=== PATIENT | female | born 1995 | race African-American/Black ===

== ENCOUNTER 2018-04-12 23:37 | Emergency (ER) | payer OTHER ==
--- NOTE | 2018-04-13 00:50 | ED Physician Documentation ---
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 patient wears glasses but not contacts. eyes were flushed immediately for 15 minutes then she was driven to ED for evaluation. she has minimal burning L>R eye. denies visual changes. Review of Systems Eyes: reports: Irritation. 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 HEENT: Other Psych: None Musculoskeletal: None Derm: None - Past Surgical History Past Surgical History: No - Present Medications Home Medications: Ambulatory Orders Medication Instructions Recorded Confirmed No Known Home Medications [No 04/12/18 04/12/18 Known Home Medications] - Allergies Allergies/Adverse Reactions: Allergies Allergy/AdvReac Type Severity Reaction Status Date / Time No Known Drug Allergies Allergy Verified 04/12/18 23:46 - Social History Does the pt smoke?: Yes Smoking Status: Current every day smoker Does the pt drink ETOH?: No Does the pt have substance abuse?: No - Immunizations Immunizations are current?: Yes - POLST Patient has POLST: No PD ED PE NORMAL - Vitals Vital signs reviewed: Yes - General General: Alert and oriented X 3, No acute distress, Well developed/nourished - HEENT HEENT: PERRL, EOMI PD ED PE EXPANDED - Eyes Eyes: PERRL, EOMI, Normal eyelids, Nl conjunctiva/sclera. No: Eyelid swelling Results - Vitals Vitals: Oxygen O2 Source Room air PD MEDICAL DECISION MAKING - ED course Complexity details: considered differential, d/w patient ED course: patient brought msds sheet with her. (see triage note for this mumber). on this sheet, it lists pH as not available. The product [employer] In[employer] Specialist , and the listed chemical ingredients are butane, toluene, isopropyl alchohol, and 4-[id number]. nitrazine paper at bedside, the pH of her eye (sample from lower conjunctiva) is 7.0. given her minimal symptoms and the neutral pH of her conjunctiva, no further testing or treatment indicated at this time. left eye was pH tested, as patient indicates the majority of the exposure and the more prominent discomfort (albeit mild) involves left eye. - Sepsis Event Vital Signs: Oxygen O2 Source Room air Departure - Departure Disposition: 01 Home, Self Care Clinical Impression: Chemical exposure of eye Condition: Good Instructions: ED Chemical Conjunctivitis Discharge Date/Time: 04/13/18 01:15
[2018-04-13 01:14] VITALS: BP 117/81
== END 2018-04-13 01:15 | disposition home or self-care (01) ==
LOC: ED 23:37
DX: T65.891A Toxic effect of other specified substances, accidental (unintentional), initial encounter (principal); F17.200 Nicotine dependence, unspecified, uncomplicated; Y92.89 Other specified places as the place of occurrence of the external cause; Y99.1 Military activity
CPT/HCPCS: 99283

== ENCOUNTER 2019-07-07 11:19 | Emergency (ER) | payer OTHER ==
[2019-07-07 11:32] VITALS: BP 126/82
--- NOTE | 2019-07-07 13:23 | XRAY Report ---
Reason: knee pain Procedure Date: 07/07/2019 Accession Number: [id number] / [id number] Procedure: XR - Knee 4 View RT CPT Code: Final Report FULL RESULT: EXAM: RIGHT KNEE RADIOGRAPHY EXAM DATE: 07/07/2019 12:59 PM. CLINICAL HISTORY: Knee pain. COMPARISON: None. TECHNIQUE: 5 views. FINDINGS: Bones: No acute fracture identified. Joints: Normal. No effusion. No subluxation. Soft Tissues: No focal soft tissue swelling. IMPRESSION: No acute osseus abnormality. RADIA
--- NOTE | 2019-07-07 13:53 | ED Physician Documentation ---
History of Present Illness - Stated complaint Stated Complaint: RT KNEE PX - Chief complaint Chief Complaint: Ext Problem - History obtained from History obtained from: Patient - History of Present Illness Timing: Last night Pain level max: 5 Pain level now: 4 - Additonal information Additional information: states r knee patella felt like it moved medially and back laterally. pain today. states this has happened several times in the past. 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 : None HEENT: Other Psych: Anxiety, Bipolar disorder Musculoskeletal: None Derm: None - Past Surgical History Past Surgical History: No - Present Medications Home Medications: Ambulatory Orders Medication Instructions Recorded Confirmed Ibuprofen [Motrin] 800 mg PO Q8H PRN #30 tablet 07/07/19 - Allergies Allergies/Adverse Reactions: Allergies Allergy/AdvReac Type Severity Reaction Status Date / Time No Known Drug Allergies Allergy Verified 04/12/18 23:46 - Social History Does the pt smoke?: Yes Smoking Status: Current every day smoker Does the pt drink ETOH?: No Does the pt have substance abuse?: No - Immunizations Immunizations are current?: Yes - POLST Patient has POLST: No PD ED PE NORMAL - Vitals Vital signs reviewed: Yes - General General: Alert and oriented X 3, No acute distress - HEENT HEENT: Moist mucous membranes - Derm Derm: Warm and dry - Extremities Extremities: Other (R knee - diffuse TTP. no swelling. no effusion. ligaments intact. NVI. ) - Neuro Neuro: Alert and oriented X 3 - Psych Psych: Normal mood, Normal affect Results - Vitals Vitals: Vital Signs - 24 hr 07/07/19 11:30 Temperature 36.6 C Heart Rate 82 Respiratory 16 Rate Blood Pressure 126/82 H O2 Saturation 100 Oxygen O2 Source Room air - Rads (name of study) r knee xray Radiology: Prelim report reviewed, EMP read contemporaneously, See rad report (normal) PD MEDICAL DECISION MAKING - ED course Complexity details: reviewed results, considered differential, d/w patient ED course: 24-year-old female with what sounds like a patellar dislocation. Spontaneously reduced. We will place in a knee immobilizer for 2 to 3 days and [place] Neurovascularly intact. Ligaments intact. No joint effusion. Patient counseled regarding signs and symptoms for which I believe and urgent re-evaluation would be necessary. Patient with good understanding of and agreement to plan and is comfortable going home at this time This document was made in part using voice recognition software. While efforts are made to proofread this document, sound alike and grammatical errors may occur. Departure - Departure Disposition: 01 Home, Self Care Clinical Impression: Closed dislocation of right patella Qualifiers: Encounter type: initial encounter Qualified Code(s): S83.004A - Unspecified dislocation of right patella, initial encounter Condition: Good Instructions: ED Dislocation Patella Follow-Up: ZENA BLANKENSHIP MD [Primary Care Provider] - Within 1 week Prescriptions: Ibuprofen [Motrin] 800 mg PO Q8H PRN #30 tablet PRN Reason: PAIN &/OR FEVER Comments: Follow-up with your doctor for further care. Return if you worsen. Remove the knee immobilizer in 2 to 3 days. Do not wear it longer than this. Continue to gently stretch her knee after that. You may bear weight as tolerated.
[2019-07-07] MEDS ORDERED: IBUPROFEN 800 MG TABLET PO STA (13:54)
== END 2019-07-07 14:07 | disposition home or self-care (01) ==
LOC: ED 11:19
DX: S83.004A Unspecified dislocation of right patella, initial encounter (principal); X58.XXXA Exposure to other specified factors, initial encounter; F17.200 Nicotine dependence, unspecified, uncomplicated
CPT/HCPCS: 73564; 99283; A9270

== ENCOUNTER 2019-09-24 10:53 | Day surgery (SDC) | payer OTHER ==
[2019-09-24] MEDS ORDERED: LACTATED RINGERS 1,000 ML IV ONE (10:59)
[2019-09-24] MEDS ORDERED: CEFAZOLIN SODIUM IN 0.9 % NACL 2 GM/100 ML BAG IV ONE (11:18)
[2019-09-24 11:26] LABS: HCG UR QUAL NEGATIVE
--- NOTE | 2019-09-24 12:41 | ANESTHESIA ---
Pre-Anesthesia VS, & Labs - Diagnosis R knee cartilage lesion/patellar instability - Procedure R knee scope, chondroplasty, open medial patellofemoral ligament reconstruction Vital Signs: Temp Pulse Resp BP Pulse Ox 36.2 C L 71 12 124/75 98 09/24/19 10:59 09/24/19 10:59 09/24/19 10:59 09/24/19 10:59 09/24/19 10:59 Height 5 ft 4 in Weight (kg) 87.5 kg Body Mass Index 30.7 - NPO >8 hours - Is Patient ?: No - Lab Results Lab results reviewed: Yes Home Medications and Allergies Home Medications: Ambulatory Orders Sertraline HCl [Zoloft] 100 mg PO DAILY 09/20/19 Sertraline HCl [Zoloft] 100 mg PO DAILY 09/20/19 Allergies/Adverse Reactions: Allergies Allergy/AdvReac Type Severity Reaction Status Date / Time No Known Drug Allergies Allergy Verified 09/20/19 09:40 Anes History & Medical History - Anesthetic History Anesthesia Complications: reports: No previous complications Family history of Anesthesia Complications: Denies Family history of Malignant Hyperthermia: Denies - Medical History Cardiovascular: reports: None Pulmonary: reports: None Gastrointestinal: reports: None Urinary: reports: None Neuro: reports: None Musculoskeletal: reports: Other Endocrine/Autoimmune: reports: None Blood Disorders: reports: None Skin: reports: None Smoking Status: Current every day smoker Exam General: Alert, Oriented x3, Cooperative Dental: WNL Mouth Opening: Greater than 4 Fingerbreadths Neck Mobility: Normal Mallampati classification: II Thyromental Distance: greater than 6 cm Respiratory: Lungs clear, Normal breath sounds, No respiratory distress Cardiovascular: Regular rate Neurological: Normal speech Mental/Cognitive Status: Alert/Oriented X3, Normal for patient Cognitive Status: Within normal limits Plan Anesthesia Type: General, Femoral Block (possible for post-op pain) Regional Block: Per Surgeon's request for Post Op pain control Consent for Procedure(s) Verified and Reviewed: Yes Code Status: Attempt Resuscitation ASA classification: 2-Mild systemic disease Is this case an emergency?: No
[2019-09-24] MEDS ORDERED: EPINEPHrine 1 MG/ML AMP ONE (13:40)
[2019-09-24] MEDS ORDERED: BUPIVACAINE 0.25% PF 30 ML VIAL ONE ×2 (13:40→13:58)
[2019-09-24] MEDS ORDERED: BACITRACIN 50,000 UNIT VIAL ONE (13:52)
[2019-09-24] MEDS ORDERED: PROPOFOL 200 MG/20 ML VIAL IVP ONE (14:06)
[2019-09-24] MEDS ORDERED: ONDANSETRON 4 MG/2 ML VIAL IVP ONE (14:06)
[2019-09-24] MEDS ORDERED: DEXAMETHASONE 4 MG/ML VIAL IVP ONE (14:06)
[2019-09-24] MEDS ORDERED: KETOROLAC 30 MG/ML VIAL IVP ONE (14:06)
[2019-09-24] MEDS ORDERED: ACETAMINOPHEN 1,000 MG/100 ML 100 ML IV ONE (14:06)
[2019-09-24] MEDS ORDERED: fentaNYL 100 MCG/2 ML VIAL IVP ONE (14:06)
[2019-09-24] MEDS ORDERED: MIDAZOLAM 2 MG/2 ML VIAL IVP ONE (14:06)
[2019-09-24] MEDS ORDERED: LIDOCAINE-MPF 2% 5 ML VIAL IM ONE (14:06)
[2019-09-24] MEDS ORDERED: EPINEPHrine 1 MG/ML AMP IVP ONE (14:41)
[2019-09-24] MEDS ORDERED: BUPIVACAINE 0.25% PF 30 ML VIAL SUBQ ONE (14:43)
[2019-09-24] MEDS ORDERED: ONDANSETRON 4 MG/2 ML VIAL IVP PRN (16:55)
[2019-09-24] MEDS ORDERED: oxyCODONE 5 MG TABLET PO PRN (16:55)
[2019-09-24] MEDS ORDERED: ONDANSETRON 4 MG/2 ML VIAL ONE (17:04)
--- NOTE | 2019-09-24 17:13 | OPERATIVE REPORT ---
Operative Report - Other Other Information/Narrative: Date of Surgery: 24 September 2019 Pre-Op Diagnosis: Right knee cartilage lesions. Right knee patellar instability Procedure: Right knee arthroscopy with patella chondroplasty, medial femoral condyle chondroplasty, lateral tibial plateau chondroplasty. Open medial patellofemoral ligament reconstruction with allograft Postop Diagnosis: Same Primary Surgeon: Saw Mcdaniel Secondary Surgeon: Arden Scott Complications: None Tourniquet Time: 124 EBL: 5 cc Implants: Arthrex suture tack x2, Arthrex 7 mm interference screw. 7 mm tibialis anterior allograft Indication For Surgery: 24-year-old female who has multiple patellar dislocations as well as cartilage lesions on the underside of the patella. She does not trust the knee and is unable to participate in activities because of her instability. Her bony anatomy seemed appropriate for soft tissue reconstruction. The risks, benefits, and alternatives were discussed. Risks include pain, bleeding, infection, damage to nearby structures and cartilage, lack of symptom relief, need for further surgery, DVT, PE, stroke, and . Written consent was obtained. Examination Under Anesthesia: ROM equal to the contralateral side. Stable dial at 30 & 90 degrees. Stable to varus and valgus stressing at 0 & 30 degrees. Normal Flex. Normal Pivot shift. When moving the patella there is a mechanical sensation. Patella has 3-4 quadrants of mobility laterally compared to 2 on the contralateral side. Arthroscopic Findings: Loose bodies -none Synovium -normal Patella cartilage -large grade 2/3 lesion on the medial border and medial patellar facet. There is also a more contained partial-thickness lesion in the lateral patellar facet. The patella was sitting laterally and tracked to the lateral border of the trochlea Trochlear cartilage -normal Medial femoral condyle cartilage -small unstable cartilage lesion near the notch which was debrided Medial tibial plateau cartilage -normal Medial meniscus -normal Anterior cruciate ligament -normal Posterior cruciate ligament -normal Lateral femoral condyle cartilage -normal Lateral tibial plateau cartilage -5 to 10 mm wide by 20 mm long area of grade 2 cartilage lesion with some focal grade 3 Lateral meniscus -normal Procedure in Detail: The patient was met in the pre-operative hold area on the day of the procedure. The operative extremity was signed and questions were answered. The patient was brought to the operating room and a general anesthetic was administered. Supine position was used and bony prominences were padded. An examination under anesthesia was performed. Standard prepping and draping was performed. A time out confirmed patient identification, laterality, procedure, allergies, antibiotics, and images. An Esmarch was used to exsanguinate the limb and the tourniquet was elevated to 250 mmHg. A standard diagnostic arthroscopy of the knee was performed through anterolateral and anteromedial portal sites. The anteromedial portal was created under direct visualization after localizing with a spinal needle. The findings can be found above. I then proceeded to use a shaver to debride the medial femoral condyle, the lateral tibial plateau, and the underside of the patella of all unstable pieces of cartilage. Based on the appearance of the medial patellar facet I thought it still appropriate to perform a stabilizing procedure. Final images were taken and all arthroscopic fluid and instruments were removed from the knee. 3 cm incision was then made overlying and I dissected down to the fascia. I made a full-thickness cut down to the medial border of the patella ensuring to stay extracapsular. I then used fluoroscopy to identify the midpoint of the patella. A curette was used to abrade the bone for the superior 50%. I then placed a suture tack at the 50 yard line and then 1 1.5 cm superior to that ensuring to remain extra-articular and inside the bone. I then made a separate incision medially at the level of the medial epicondyle and dissected down to the medial epicondyle. I felt the sulcus between the epicondyle and the abductor tubercle and placed a Beath pin aiming anterior and proximal. X-ray was then used for an AP and a lateral confirming the reasonable position. I then passed the sutures over the pin and tested for isometry. I found that the sutures were getting too tight in flexion and so the pin was removed and placed slightly more distal and posterior. Isometry was then excellent from 0-90 and then after 90 it loosened slightly. Satisfied with this I got a repeat x-ray showing that I was well within 7 mm of shuttles point. I then drilled the Beath pin across the leg and out the lateral side and overdrilled this with 7mm to 40 mm of which was the size of the graft. I then placed the Glatt graft on the border of the patella and tied it to the suture tacks. I then tunneled extra-articular lead down to the femoral tunnel and the graft was passed into the other wound. I then measured 20 mm from the pin site and cut the graft at that location. It was then whipstitched. I then passed the Beath pin with the sutures out the lateral side of the leg and dunked the graft into the tunnel. To tension I pulled tight and manually reduced the patella into the trochlea at 30 degrees of flexion. I then released the sutures and took her through full range of motion and found the graft to remain with good tension. I then tested lateral translation and there was less than 2 quadrants. The graft was fixed in the femur with interference screw. I then repeated full range of motion and lateral translation and was pleased. I then closed the medial patellar sleeve in a pants over vest fashion with 0 Vicryl, burying the FiberWire knots from the suture anchors. I then closed deep layers with 0 Vicryl dermis with 2-0 Vicryl and running Monocryl in the skin. Mastisol and Steri-Strips were applied. 30 cc of quarter percent Marcaine without epinephrine was injected near the incision sites. A sterile dressing and a compression stocking were placed. The patient was awakened and transferred to recovery in stable condition.
[2019-09-24] MEDS ORDERED: oxyCODONE 5 MG TABLET ONE (17:33)
[2019-09-24 17:36] VITALS: BP 131/77
--- NOTE | 2019-09-25 09:29 | XRAY Report ---
Reason: PLACEMENT OF IMPLANTS Procedure Date: 09/24/2019 Accession Number: [id number] / [id number] Procedure: FL - OR C-Arm Procedure CPT Code: Final Report FULL RESULT: EXAM: FLUOROSCOPIC GUIDANCE EXAM DATE: 09/24/2019 04:50 PM. CLINICAL HISTORY: Placement of implants. COMPARISON: None. FINDINGS: Lateral fluoroscopic images of a knee demonstrate instrumentation over a Ludin wire. IMPRESSION: Fluoroscopic guidance provided for knee pain with knee instability. Implants placed for stabilization. Total fluoroscopy time: 11 seconds. Number of images: 3. RADIA
== END 2019-09-24 10:54 | disposition home or self-care (01) ==
LOC: SDS 10:53
PROVIDERS: ATTEND Orthopaedic Surgery
PROC: 0SBC4ZZ Excision of Right Knee Joint, Percutaneous Endoscopic Approach (ICD-10-PCS; 2019-09-24)
PROC: 0YUF0KZ Supplement Right Knee Region with Nonautologous Tissue Substitute, Open Approach (ICD-10-PCS; principal; 2019-09-24 13:30)
DX: M23.52 Chronic instability of knee, left knee (principal); M23.8X1 Other internal derangements of right knee; D57.3 Sickle-cell trait; F17.210 Nicotine dependence, cigarettes, uncomplicated
CPT/HCPCS: 81025